=== PATIENT | female | born 1950 | race Caucasian/White ===

== ENCOUNTER → 2016-08-19 | Outpatient (CLI) | payer MEDICARE ==
[~2016-08-19] MED LIST: ALPRAZOLAM0.5 MG PO; ASPIR 8181 MG PO; EFFEXOR XR 150150 MG PO; FEOSOL325 MG PO; HYDROCHLOROTH12.5 M1 PO; LIPITOR TAB 1010 MG PO; TRAZODONE HCL100 MG PO; UNKOWN; VICTOZA 3-0.6 MG/0.1 SC; WELLBUTRIN XL300 MG PO
== END ==
LOC: KOH-I 11:09
DX: M25.532 Pain in left wrist (principal); M79.632 Pain in left forearm; M79.642 Pain in left hand
CPT/HCPCS: 73090; 73110; 73130

== ENCOUNTER → 2016-08-19 | Day surgery (SDC) | payer MEDICARE, OTHER ==
[~2016-08-19] VITALS: Ht 170.2 cm; Wt 78.5 kg
[2016-08-19 14:27] LABS: RED BLOOD COUNT 4.77 M/UL (4.00-5.10); WHITE BLOOD COUNT 9.1 K/UL (4.5-11.0)
== END | disposition home or self-care (01) ==
LOC: OR 13:37
PROVIDERS: Orthopaedic Surgery
PROC: 0PSJ04Z Reposition Left Radius with Internal Fixation Device, Open Approach (ICD-10-PCS; principal; 2016-08-19 20:00)
DX: S52.502A Unspecified fracture of the lower end of left radius, initial encounter for closed fracture (principal); I10 Essential (primary) hypertension; I25.10 Atherosclerotic heart disease of native coronary artery without angina pectoris; E78.00 Pure hypercholesterolemia, unspecified; E11.9 Type 2 diabetes mellitus without complications; M19.90 Unspecified osteoarthritis, unspecified site; Z98.84 Bariatric surgery status; Z88.6 Allergy status to analgesic agent; Z90.710 Acquired absence of both cervix and uterus; Z79.899 Other long term (current) drug therapy; W19.XXXA Unspecified fall, initial encounter; Y92.009 Unspecified place in unspecified non-institutional (private) residence as the place of occurrence of the external cause
CPT/HCPCS: 36415; 73110; 76000; 80048; 82962; 85025; 93005; C1713; J0690; J1100; J2250; J2405; J2795; J3010; J7120

== ENCOUNTER → 2020-07-04 | Outpatient (CLI) | payer MEDICARE, OTHER | LOC: KOH-I 10:05 | DX: R10.11 Right upper quadrant pain (principal); K76.0 Fatty (change of) liver, not elsewhere classified; Z90.49 Acquired absence of other specified parts of digestive tract | CPT/HCPCS: 76705 ==

== ENCOUNTER → 2021-01-30 | Outpatient (CLI) | payer MEDICARE, OTHER | LOC: EMI 11:00 | DX: M76.821 Posterior tibial tendinitis, right leg (principal); S92.001A Unspecified fracture of right calcaneus, initial encounter for closed fracture | CPT/HCPCS: 73721 ==